=== PATIENT | male | born 1995 | race Caucasian/White ===

== ENCOUNTER 2022-11-13 11:04 | Emergency (ER) | payer OTHER, SELFPAY ==
--- NOTE | ~2022-11-13 | XR_ITS ---
EXAMINATION: XR FINGER, LEFT CLINICAL INFORMATION: Thumb injury COMPARISON: None TECHNIQUE: 3 views of the left thumb. FINDINGS: The bones and soft tissues are normal. No fracture. Alignment is anatomic. Joint spaces are maintained. XR/XR finger LT min 2V IMPRESSION: Normal finger radiographs.
[2022-11-13 11:18] VITALS: BP 137/82; PULSE 74; RESP 16; TEMP 36.9; O2SAT 98; BMI 29.5
--- NOTE | 2022-11-13 11:19 | ED.UPPEXIN ---
HPI - Extremity Injury (Upper) General Chief Complaint: Wound/Laceration Stated Complaint: Thumb lac/Work inj Time Seen by Provider: 11/13/22 11:14 Source: patient Mode of arrival: ambulatory Limitations: no limitations History of Present Illness HPI narrative: 27 yo right-hand dominant male presents to the ER for a laceration of his left thumb. He was using gardening holly to trim marijuana at his work when he accidentally cut through the tip of his thumb when trying to cut a thick branch. He avulsed the area and there is a flap, minimally involving the distal portion of the fingernail. He had a good amount of active bleeding on scene, used a bandage to hold direct pressure and was brought to the ER for further evaluation. He is not on any blood thinners. He reports full range of motion of the thumb. No numbness or tingling. complaint: injury to: left and finger Onset (ago): minute(s) Other Extremity Injury: left: fingers ( Thumb) Other injuries: none Handedness: right Place: work Severity: moderate Severity scale (1-10): 5 Relieving factors: cold therapy and immobilization Context: other Associated symptoms: denies other symptoms Treatments prior to arrival: bandage Related Data Home Medications Medication Instructions Recorded Confirmed ibuprofen 600 mg tablet 600 mg PO Q8H PRN 07/29/22 Allergies Allergy/AdvReac Type Severity Reaction Status Date / Time amoxicillin Allergy Intermediate Nausea and Verified 07/29/22 12:02 Vomiting Review of Systems Review of Systems: Yes all other systems are reviewed and are negative [facility] Family History Family History (Updated 07/29/22 @ 11:30 by Cynthia Beltran CMA) Father Diabetes HTN (hypertension) Asthma Social History Social History (Updated 07/29/22 @ 11:31 by Cynthia Beltran CMA) Household Members: Significant Other Housing: Apartment Alcohol intake: never Patient Tobacco Use Status: Never used Tobacco Advance Directives: No Advance Directives Information Provided: No service: No Current occupational status: employed 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 Oriented X3. No acute distress. HEENT: normal inspection CVS: Normal heart rate and rhythm. Pulses normal. Respiratory: No respiratory distress. Skin: Skin warm and dry. Normal skin color. Normal skin turgor. No rashes. Extremities: tip of left thumb with an avulsion of part of the tip involving the distal portion of the nail, approx 2mm. normal ROM of the thumb, normal sensation and movement. Neuro: Oriented X 3. No motor deficit. No sensory deficit. Course Course Course Narrative: 27-year-old male presents to the ER for evaluation of an avulsion injury of left thumb. Amenable to gluing and Steri stripping at this time. Tdap given. Wound was soaked in Betadine and saline for antiseptic affect. X-rays pending to ensure does not go to the bone all those clinical suspicion is low. Reevaluation(s) Reevaluation #1: X-ray does not show bony involvement. No need for antibiotics. Wound was adequately closed with Dermabond and Steri-Strips. Comfortable discharge home. Wound care discussed with the patient. All questions were answered. Medications Administered Discontinued Medications Generic Name Dose Route Start Last Admin Trade Name Freq PRN Reason Stop Dose Admin Diphtheria/Tetanus/Acell Pertussis 0.5 ml 11/13/22 11:14 11/13/22 11:43 Diphth,Pertus(Acell),Tet Adult 0.5 Ml Syringe IM 11/13/22 11:15 0.5 ml .ONCE ONE Administration Medical Decision Making Differential Diagnosis Differential Diagnoses: The differential diagnosis associated with the presentation includes Laceration, avulsion, open fracture, scrape, abrasion Independent Interpretation I performed an independent interpretation of an: Plain X-Ray Interpretation: no bony involvement, no fx Radiology Impression Discussion of test interpretation with radiology: I have reviewed the radiologist's reading. Radiologist Impression: IMPRESSION: Normal finger radiographs. Prescription Management I considered prescription management with: Antibiotic not indicated, not down to the bone Procedures Laceration Laceration 1: Site: hand Side (If applicable): left Size (cm): 1.5 Description: flap Depth: simple, single layer Pre-repair: wound explored, irrigated extensively and deep structures intact Skin layer closed with: other (dermabond and steri strips) Discharge Plan Discharge Clinical Impression: Avulsion of finger tip Patient Disposition: Home, Self-Care Instructions: Skin Avulsion (ED) Additional Instructions: Skin glue and Steri-Strips were used to close the wound today. Two not get wet for 48 hours. After that you can briefly wash with soap and water then pat dry. The Steri-Strips and Dermabond will come off on their own. Do not peel them off. When in a ends of the Steri-Strips begin to shell just trim them. Prescriptions: No Action ibuprofen 600 mg tablet 600 mg PO Q8H PRN Interventions: ED Discharge Assessment Last Done: 11/13/22 13:48 Discharge Date/Time: 11/13/22 13:48
[2022-11-13] MEDS: Diphth,Pertus(ACell),Tet Adult 0.5 ML SYRINGE IM (11:43)
== END 2022-11-13 13:48 | disposition home or self-care (01) ==
PROVIDERS: Emergency Provider Emergency Medicine
DX: S61.012A Laceration without foreign body of left thumb without damage to nail, initial encounter (principal); W27.1XXA Contact with garden tool, initial encounter; Y93.89 Activity, other specified; Y92.59 Other trade areas as the place of occurrence of the external cause; Y99.0 Civilian activity done for income or pay
CPT/HCPCS: 12001; 73140; 90471; 90715; 99282; 99284